=== PATIENT | male | born 1960 | race Caucasian/White ===

== ENCOUNTER 2020-07-26 12:51 | Inpatient (IN) | payer BC ==
[2020-07-26] MEDS ORDERED: ACETAMINOPHEN INJECTION 100 ML IVPB ONE (14:02)
[2020-07-26 14:46] LABS: BASO % 0.2 % (0-2.0); HEMATOCRIT 47.5 % (35.4-49); HEMOGLOBIN 16.5 GM/dL (11.7-16.9); LYMPH % 7.2 % (8-40); MCH 31.2 pg (25.7-33.7); MCHC 34.7 g/dl (32.0-35.9); MEAN CELL VOLUME 89.9 fl (80-96); MEAN PLT VOLUME 8.9 fl (7.5-11.1); MONO % 5.5 % (3.8-10.2); NEUT % 87.1 % (42.8-82.8); PLATELET COUNT 112 K/MM3 (134-434); RBC 5.28 M/mm3 (4.00-5.60); WHITE BLOOD COUNT 9.4 K/mm3 (4.0-10.0)
[2020-07-26] MEDS ORDERED: SODIUM CHLORIDE 500 ML IV STA (14:50)
[2020-07-26] MEDS ORDERED: ACETAMINOPHEN 1000 MG/100 ML BAG IVPB ONE (14:50)
[2020-07-26 14:52] LABS: EPI CELLS 12 /uL (0-25.1); HYALINE CASTS 2 /uL (0-3.1); INR 1.4 (0.83-1.09); PROTHROMBIN TIME (PATIENT) 17.1 SEC (9.7-13.0); URINE APPEARANCE CLEAR; URINE BACTERIA 49 /uL (0-1359); URINE BILIRUBIN 1+ (NEGATIVE); URINE COLOR DK YELLOW; URINE GLUCOSE (UA) NEGATIVE (NEGATIVE); URINE KETONE TRACE (NEGATIVE); URINE LEUK ESTERASE NEGATIVE (NEGATIVE); URINE NITRITE NEGATIVE (NEGATIVE); URINE PROTEIN 2+ (NEGATIVE); URINE RBC 15 /uL (0-23.9); URINE WBC 10 /uL (0-25.8)
[2020-07-26 14:55] LABS: ACTIVATED PTT 33.4 SECONDS (25.2-36.5)
[2020-07-26 14:58] VITALS: BMI 26.9
[2020-07-26 15:06] LABS: CHLORIDE 101 mmol/L (98-107); SODIUM 135 mmol/L (136-145)
[2020-07-26 15:08] LABS: ANION GAP 7 MMOL/L (8-16); CALCIUM 8.2 mg/dL (8.5-10.1); CO2 26 mmol/L (21-32)
[2020-07-26 15:09] LABS: ALBUMIN 2.7 g/dl (3.4-5.0); BLOOD UREA NITROGEN 17.2 mg/dL (7-18); GLUCOSE,RANDOM 193 mg/dL (74-106)
[2020-07-26 15:11] LABS: BILIRUBIN,DIRECT 0.5 mg/dL (0.0-0.2); SGPT/ALT 56 U/L (13-61)
[2020-07-26 15:12] LABS: CREATININE 0.8 mg/dL (0.55-1.3); SGOT/AST 84 U/L (15-37)
[2020-07-26 15:13] LABS: BILIRUBIN,TOTAL 0.9 mg/dL (0.2-1); TOT PROT 6.4 g/dl (6.4-8.2)
[2020-07-26 15:14] LABS: ALK PHOS 115 U/L (45-117)
[2020-07-26 15:15] LABS: LDH 422 U/L (87-246)
[2020-07-26] MEDS ORDERED: SODIUM CHLORIDE 1,000 ML IV STA (16:02)
[2020-07-26] MEDS ORDERED: DEXAMETHASONE SOD PHOSPHATE 10 MG/1 ML VIAL ONE (17:38)
[2020-07-26] MEDS ORDERED: ENOXAPARIN NA (PORCINE) 40 MG/0.4 ML DISP.SYRIN SQ ONE (17:38)
[2020-07-26] MEDS ORDERED: CEFTRIAXONE 1 GM/50 ML BAG ONE (17:38)
[2020-07-26] MEDS ORDERED: CHOLECALCIFEROL (VIT D3) 1,000 UNIT (25 MCG) TABLET ONE (17:38)
[2020-07-26] MEDS ORDERED: AZITHROMYCIN IVPB 500 MG/250 ML BAG IVPB ONE (17:39)
[2020-07-26] MEDS: CEFTRIAXONE 1 GM in DEXTROSE 5%-WATER - 50 ML IVPB SCH (17:55)
[2020-07-26] MEDS: DEXAMETHASONE SOD PHOSPHATE 4 MG/1 ML VIAL IVPUSH SCH (17:55)
[2020-07-26] MEDS: CHOLECALCIFEROL (VIT D3) 1,000 UNIT (25 MCG) TABLET PO SCH (17:55)
[2020-07-26] MEDS: ENOXAPARIN NA (PORCINE) 40 MG/0.4 ML DISP.SYRIN SQ SCH (17:55)
[2020-07-26] MEDS: AZITHROMYCIN IVPB 500 MG/250 ML BAG IVPB SCH (18:30)
[2020-07-26] MEDS ORDERED: ALBUTEROL SO4 HFA INHALER IH PRN (18:48)
[2020-07-27] MEDS ORDERED: ZINC SULFATE 220 MG CAPSULE (FP) ONE ×2 (00:24→09:31)
[2020-07-27] MEDS: ASCORBIC ACID 500 MG TABLET (FP) PO SCH ×3 (00:24→21:42)
[2020-07-27] MEDS: ZINC SULFATE 220 MG CAPSULE (FP) PO SCH ×3 (00:24→21:42)
[2020-07-27 06:44] LABS: INR 1.6 (0.83-1.09); PROTHROMBIN TIME (PATIENT) 19.4 SEC (9.7-13.0)
[2020-07-27 06:45] LABS: BASO % 0.1 % (0-2.0); HEMATOCRIT 44.1 % (35.4-49); HEMOGLOBIN 15.5 GM/dL (11.7-16.9); LYMPH % 10.9 % (8-40); MCH 31.9 pg (25.7-33.7); MCHC 35.2 g/dl (32.0-35.9); MEAN CELL VOLUME 90.8 fl (80-96); MEAN PLT VOLUME 8.8 fl (7.5-11.1); MONO % 5.1 % (3.8-10.2); NEUT % 83.9 % (42.8-82.8); PLATELET COUNT 85 K/MM3 (134-434); RBC 4.85 M/mm3 (4.00-5.60); RDW 13.4 % (11.9-15.9); WHITE BLOOD COUNT 5.5 K/mm3 (4.0-10.0)
[2020-07-27 06:47] LABS: ACTIVATED PTT 36.4 SECONDS (25.2-36.5)
[2020-07-27 07:00] LABS: BLOOD UREA NITROGEN 14.2 mg/dL (7-18)
[2020-07-27 07:01] LABS: ALBUMIN 2.3 g/dl (3.4-5.0); MAGNESIUM 1.8 mg/dL (1.8-2.4)
[2020-07-27 07:03] LABS: CREATININE 0.6 mg/dL (0.55-1.3); PHOSPHOROUS 2.8 mg/dL (2.5-4.9)
[2020-07-27 07:05] LABS: BILIRUBIN,TOTAL 0.6 mg/dL (0.2-1); TOT PROT 5.6 g/dl (6.4-8.2)
[2020-07-27] MEDS ORDERED: CHOLECALCIFEROL (VIT D3) 1,000 UNIT (25 MCG) TABLET ONE (09:31)
[2020-07-27] MEDS ORDERED: DEXAMETHASONE SOD PHOSPHATE 4 MG/1 ML VIAL ONE (09:31)
[2020-07-27] MEDS ORDERED: cefTRIAXone SODIUM 1 GM VIAL ONE (09:31)
[2020-07-27] MEDS ORDERED: ASCORBIC ACID 500 MG TABLET (FP) ONE (09:31)
[2020-07-27] MEDS ORDERED: ENOXAPARIN NA (PORCINE) 40 MG/0.4 ML DISP.SYRIN SQ ONE (09:31)
[2020-07-27] MEDS ORDERED: AZITHROMYCIN IVPB 500 MG/250 ML BAG IVPB ONE (09:32)
[2020-07-27] MEDS: DEXAMETHASONE SOD PHOSPHATE 4 MG/1 ML VIAL IVPUSH SCH (09:36)
[2020-07-27] MEDS: CEFTRIAXONE 1 GM in DEXTROSE 5%-WATER - 50 ML IVPB SCH (09:36)
[2020-07-27] MEDS: AZITHROMYCIN IVPB 500 MG/250 ML BAG IVPB SCH (09:36)
[2020-07-27] MEDS: CHOLECALCIFEROL (VIT D3) 1,000 UNIT (25 MCG) TABLET PO SCH (09:36)
[2020-07-27] MEDS: ENOXAPARIN NA (PORCINE) 40 MG/0.4 ML DISP.SYRIN SQ SCH (09:36)
[2020-07-27] MEDS ORDERED: AZITHROMYCIN IVPB 500 MG in DEXTROSE 5%-WATER - 250 ML IVPB SCH (10:00)
[2020-07-27] MEDS ORDERED: CEFTRIAXONE 1 GM in DEXTROSE 5%-WATER - 50 ML IVPB SCH (10:00)
[2020-07-27] MEDS ORDERED: DEXAMETHASONE SOD PHOSPHATE 4 MG/1 ML VIAL IVPUSH SCH (10:00)
[2020-07-27] MEDS ORDERED: REMDESIVIR 200 MG in SODIUM CHLORIDE 210 ML IVPB ONE (11:45)
[2020-07-27] MEDS: BENZOCAINE/MENTH/CETYLPYRD CL 1 EACH LOZENGE MM PRN ×2 (16:34→22:13)
[2020-07-28] MEDS ORDERED: ACETAMINOPHEN WITH CODEINE 300MG/30MG TABLET PO PRN (01:40)
[2020-07-28] MEDS ORDERED: ACETAMINOPHEN WITH CODEINE 300MG/30MG TABLET PO ONE (02:22)
[2020-07-28 08:42] LABS: HEMATOCRIT 41.6 % (35.4-49); HEMOGLOBIN 14.5 GM/dL (11.7-16.9); LYMPH % 10.9 % (8-40); MCH 31.7 pg (25.7-33.7); MCHC 34.9 g/dl (32.0-35.9); MEAN CELL VOLUME 90.8 fl (80-96); MEAN PLT VOLUME 9.4 fl (7.5-11.1); MONO % 7.7 % (3.8-10.2); NEUT % 81.4 % (42.8-82.8); PLATELET COUNT 105 K/MM3 (134-434); RBC 4.58 M/mm3 (4.00-5.60); RDW 13.4 % (11.9-15.9); WHITE BLOOD COUNT 8.4 K/mm3 (4.0-10.0)
[2020-07-28 08:57] LABS: ALBUMIN 2.3 g/dl (3.4-5.0); BLOOD UREA NITROGEN 16.2 mg/dL (7-18); CALCIUM 7.9 mg/dL (8.5-10.1); MAGNESIUM 2.3 mg/dL (1.8-2.4)
[2020-07-28 09:00] LABS: CREATININE 0.6 mg/dL (0.55-1.3)
[2020-07-28 09:01] LABS: PHOSPHOROUS 2.8 mg/dL (2.5-4.9)
[2020-07-28 09:02] LABS: TOT PROT 5.6 g/dl (6.4-8.2)
[2020-07-28] MEDS: ASCORBIC ACID 500 MG TABLET (FP) PO SCH ×2 (09:34→23:16)
[2020-07-28] MEDS: ZINC SULFATE 220 MG CAPSULE (FP) PO SCH ×2 (09:34→23:16)
[2020-07-28] MEDS: CHOLECALCIFEROL (VIT D3) 1,000 UNIT (25 MCG) TABLET PO SCH (09:34)
[2020-07-28] MEDS: ENOXAPARIN NA (PORCINE) 40 MG/0.4 ML DISP.SYRIN SQ SCH (09:35)
[2020-07-28] MEDS: DEXAMETHASONE SOD PHOSPHATE 4 MG/1 ML VIAL IVPUSH SCH (09:53)
[2020-07-28] MEDS: AZITHROMYCIN IVPB 500 MG/250 ML BAG IVPB SCH (09:53)
[2020-07-28] MEDS: CEFTRIAXONE 1 GM in DEXTROSE 5%-WATER - 50 ML IVPB SCH (09:53)
[2020-07-28] MEDS ORDERED: ENOXAPARIN NA (PORCINE) 30 MG/0.3 ML DISP.SYRIN SQ ONE (14:08)
[2020-07-28] MEDS ORDERED: SODIUM CHLORIDE 500 ML IV STA (14:30)
[2020-07-28] MEDS: REMDESIVIR 100 MG in SODIUM CHLORIDE 230 ML IVPB SCH (14:41)
[2020-07-28] MEDS: INSULIN SLIDING SCALE (NOVOLOG) 1 VIAL SQ SCH ×3 (14:42→23:17)
[2020-07-28] MEDS: ENOXAPARIN NA (PORCINE) 80 MG/0.8 ML DISP.SYRIN SQ SCH (23:16)
[2020-07-28] MEDS: FAMOTIDINE 20 MG/50 ML IVPB 20 MG/50 ML MG IVPB SCH (23:17)
[2020-07-29] MEDS: INSULIN SLIDING SCALE (NOVOLOG) 1 VIAL SQ SCH ×4 (06:55→21:24)
[2020-07-29] MEDS: CHOLECALCIFEROL (VIT D3) 1,000 UNIT (25 MCG) TABLET PO SCH (09:00)
[2020-07-29] MEDS: ZINC SULFATE 220 MG CAPSULE (FP) PO SCH ×2 (09:00→21:24)
[2020-07-29] MEDS: FAMOTIDINE 20 MG/50 ML IVPB 20 MG/50 ML MG IVPB SCH ×2 (09:00→21:24)
[2020-07-29] MEDS: ASCORBIC ACID 500 MG TABLET (FP) PO SCH ×2 (09:01→21:24)
[2020-07-29] MEDS: AZITHROMYCIN IVPB 500 MG/250 ML BAG IVPB SCH (09:02)
[2020-07-29] MEDS: ENOXAPARIN NA (PORCINE) 80 MG/0.8 ML DISP.SYRIN SQ SCH ×2 (09:19→21:24)
[2020-07-29] MEDS: DEXAMETHASONE SOD PHOSPHATE 4 MG/1 ML VIAL IVPUSH SCH (09:20)
[2020-07-29] MEDS: CEFTRIAXONE 1 GM in DEXTROSE 5%-WATER - 50 ML IVPB SCH (11:07)
[2020-07-29] MEDS: REMDESIVIR 100 MG in SODIUM CHLORIDE 230 ML IVPB SCH (11:50)
[2020-07-29 12:43] LABS: BASO % 0.1 % (0-2.0); HEMATOCRIT 42.1 % (35.4-49); HEMOGLOBIN 14.8 GM/dL (11.7-16.9); LYMPH % 8.5 % (8-40); MCH 31.7 pg (25.7-33.7); MCHC 35.2 g/dl (32.0-35.9); MEAN CELL VOLUME 89.9 fl (80-96); MEAN PLT VOLUME 9.3 fl (7.5-11.1); NEUT % 84.4 % (42.8-82.8); PLATELET COUNT 115 K/MM3 (134-434); RBC 4.69 M/mm3 (4.00-5.60); RDW 13.4 % (11.9-15.9)
[2020-07-29 13:07] LABS: CALCIUM 7.7 mg/dL (8.5-10.1)
[2020-07-29 13:08] LABS: ALBUMIN 2.2 g/dl (3.4-5.0); BLOOD UREA NITROGEN 14.8 mg/dL (7-18); MAGNESIUM 2.3 mg/dL (1.8-2.4)
[2020-07-29 13:11] LABS: CREATININE 0.6 mg/dL (0.55-1.3); PHOSPHOROUS 2.6 mg/dL (2.5-4.9)
[2020-07-29 13:12] LABS: BILIRUBIN,TOTAL 0.7 mg/dL (0.2-1)
[2020-07-29 13:13] LABS: TOT PROT 5.5 g/dl (6.4-8.2)
[2020-07-29 13:15] LABS: INR 1.63 (0.83-1.09); PROTHROMBIN TIME (PATIENT) 19.5 SEC (9.7-13.0)
[2020-07-30] MEDS: INSULIN SLIDING SCALE (NOVOLOG) 1 VIAL SQ SCH ×4 (06:29→22:14)
[2020-07-30 09:09] LABS: HEMATOCRIT 45.5 % (35.4-49); HEMOGLOBIN 15.5 GM/dL (11.7-16.9); MCH 30.9 pg (25.7-33.7); MEAN CELL VOLUME 90.9 fl (80-96); MEAN PLT VOLUME 9.4 fl (7.5-11.1); PLATELET COUNT 127 K/MM3 (134-434); RBC 5.01 M/mm3 (4.00-5.60); RDW 13.3 % (11.9-15.9); WHITE BLOOD COUNT 8.2 K/mm3 (4.0-10.0)
[2020-07-30 09:15] LABS: INR 1.53 (0.83-1.09); PROTHROMBIN TIME (PATIENT) 18.6 SEC (9.7-13.0)
[2020-07-30 09:28] LABS: CALCIUM 7.6 mg/dL (8.5-10.1)
[2020-07-30 09:29] LABS: ALBUMIN 2.3 g/dl (3.4-5.0); MAGNESIUM 2.1 mg/dL (1.8-2.4)
[2020-07-30 09:32] LABS: CREATININE 0.7 mg/dL (0.55-1.3); PHOSPHOROUS 2.6 mg/dL (2.5-4.9)
[2020-07-30 09:33] LABS: BILIRUBIN,TOTAL 0.9 mg/dL (0.2-1); TOT PROT 5.6 g/dl (6.4-8.2)
[2020-07-30] MEDS: FAMOTIDINE 20 MG/50 ML IVPB 20 MG/50 ML MG IVPB SCH ×2 (09:51→22:16)
[2020-07-30] MEDS: ENOXAPARIN NA (PORCINE) 80 MG/0.8 ML DISP.SYRIN SQ SCH ×2 (09:51→22:16)
[2020-07-30] MEDS: ZINC SULFATE 220 MG CAPSULE (FP) PO SCH ×2 (09:52→22:14)
[2020-07-30] MEDS: CHOLECALCIFEROL (VIT D3) 1,000 UNIT (25 MCG) TABLET PO SCH (09:53)
[2020-07-30] MEDS: DEXAMETHASONE SOD PHOSPHATE 4 MG/1 ML VIAL IVPUSH SCH (09:53)
[2020-07-30] MEDS: REMDESIVIR 100 MG in SODIUM CHLORIDE 230 ML IVPB SCH (09:53)
[2020-07-30] MEDS: ASCORBIC ACID 500 MG TABLET (FP) PO SCH ×2 (09:53→22:14)
[2020-07-31] MEDS: INSULIN SLIDING SCALE (NOVOLOG) 1 VIAL SQ SCH ×4 (06:05→23:13)
[2020-07-31 08:35] LABS: HEMATOCRIT 44.9 % (35.4-49); HEMOGLOBIN 15.5 GM/dL (11.7-16.9); MCH 31.1 pg (25.7-33.7); MCHC 34.4 g/dl (32.0-35.9); MEAN CELL VOLUME 90.3 fl (80-96); MEAN PLT VOLUME 9.4 fl (7.5-11.1); PLATELET COUNT 131 K/MM3 (134-434); RBC 4.98 M/mm3 (4.00-5.60); RDW 13.5 % (11.9-15.9); WHITE BLOOD COUNT 8.2 K/mm3 (4.0-10.0)
[2020-07-31 08:46] LABS: ALBUMIN 2.3 g/dl (3.4-5.0); BLOOD UREA NITROGEN 13.9 mg/dL (7-18); CALCIUM 7.7 mg/dL (8.5-10.1)
[2020-07-31 08:49] LABS: CREATININE 0.6 mg/dL (0.55-1.3)
[2020-07-31 08:50] LABS: INR 1.57 (0.83-1.09); PHOSPHOROUS 2.9 mg/dL (2.5-4.9); PROTHROMBIN TIME (PATIENT) 18.8 SEC (9.7-13.0)
[2020-07-31 08:51] LABS: TOT PROT 5.7 g/dl (6.4-8.2)
[2020-07-31] MEDS: ENOXAPARIN NA (PORCINE) 80 MG/0.8 ML DISP.SYRIN SQ SCH ×2 (09:52→21:30)
[2020-07-31] MEDS: ASCORBIC ACID 500 MG TABLET (FP) PO SCH ×2 (09:52→21:30)
[2020-07-31] MEDS: FAMOTIDINE 20 MG/50 ML IVPB 20 MG/50 ML MG IVPB SCH ×2 (09:52→21:30)
[2020-07-31] MEDS: DEXAMETHASONE SOD PHOSPHATE 4 MG/1 ML VIAL IVPUSH SCH (09:52)
[2020-07-31] MEDS: ZINC SULFATE 220 MG CAPSULE (FP) PO SCH ×2 (09:52→21:30)
[2020-07-31] MEDS: CHOLECALCIFEROL (VIT D3) 1,000 UNIT (25 MCG) TABLET PO SCH (09:52)
[2020-07-31] MEDS: REMDESIVIR 100 MG in SODIUM CHLORIDE 230 ML IVPB SCH (09:53)
[2020-08-01] MEDS: INSULIN SLIDING SCALE (NOVOLOG) 1 VIAL SQ SCH ×4 (05:59→22:15)
[2020-08-01 08:09] LABS: BASO % 0.1 % (0-2.0); EOS % 0.8 % (0-4.5); HEMATOCRIT 44.5 % (35.4-49); HEMOGLOBIN 15.2 GM/dL (11.7-16.9); LYMPH % 15.1 % (8-40); MCH 31.1 pg (25.7-33.7); MCHC 34.2 g/dl (32.0-35.9); MEAN CELL VOLUME 90.8 fl (80-96); MEAN PLT VOLUME 9.5 fl (7.5-11.1); MONO % 7.1 % (3.8-10.2); NEUT % 76.9 % (42.8-82.8); PLATELET COUNT 145 K/MM3 (134-434); RDW 13.4 % (11.9-15.9); WHITE BLOOD COUNT 7.7 K/mm3 (4.0-10.0)
[2020-08-01 08:28] LABS: ALBUMIN 2.1 g/dl (3.4-5.0); CALCIUM 7.9 mg/dL (8.5-10.1)
[2020-08-01 08:29] LABS: BLOOD UREA NITROGEN 15.6 mg/dL (7-18)
[2020-08-01 08:31] LABS: BILIRUBIN,DIRECT 0.3 mg/dL (0.0-0.2)
[2020-08-01 08:32] LABS: CREATININE 0.5 mg/dL (0.55-1.3)
[2020-08-01 08:33] LABS: BILIRUBIN,TOTAL 1.3 mg/dL (0.2-1); TOT PROT 5.8 g/dl (6.4-8.2)
[2020-08-01] MEDS: CHOLECALCIFEROL (VIT D3) 1,000 UNIT (25 MCG) TABLET PO SCH (10:58)
[2020-08-01] MEDS: ASCORBIC ACID 500 MG TABLET (FP) PO SCH ×2 (10:58→22:13)
[2020-08-01] MEDS: ZINC SULFATE 220 MG CAPSULE (FP) PO SCH ×2 (10:58→22:13)
[2020-08-01] MEDS: ENOXAPARIN NA (PORCINE) 80 MG/0.8 ML DISP.SYRIN SQ SCH ×2 (10:59→22:12)
[2020-08-01] MEDS: FAMOTIDINE 20 MG/50 ML IVPB 20 MG/50 ML MG IVPB SCH ×2 (11:00→22:13)
[2020-08-01] MEDS: DEXAMETHASONE SOD PHOSPHATE 4 MG/1 ML VIAL IVPUSH SCH (11:00)
[2020-08-02] MEDS: INSULIN SLIDING SCALE (NOVOLOG) 1 VIAL SQ SCH ×3 (06:59→17:11)
[2020-08-02] MEDS: FAMOTIDINE 20 MG/50 ML IVPB 20 MG/50 ML MG IVPB SCH (10:45)
[2020-08-02] MEDS: ASCORBIC ACID 500 MG TABLET (FP) PO SCH (10:46)
[2020-08-02] MEDS: CHOLECALCIFEROL (VIT D3) 1,000 UNIT (25 MCG) TABLET PO SCH (10:46)
[2020-08-02] MEDS: ZINC SULFATE 220 MG CAPSULE (FP) PO SCH (10:46)
[2020-08-02] MEDS: DEXAMETHASONE SOD PHOSPHATE 4 MG/1 ML VIAL IVPUSH SCH (10:46)
[2020-08-02] MEDS: ENOXAPARIN NA (PORCINE) 80 MG/0.8 ML DISP.SYRIN SQ SCH (10:47)
[2020-08-02 15:22] LABS: ALBUMIN 2.5 g/dl (3.4-5.0); BILIRUBIN,TOTAL 0.9 mg/dL (0.2-1); BLOOD UREA NITROGEN 19.4 mg/dL (7-18); CALCIUM 8.3 mg/dL (8.5-10.1); CREATININE 0.8 mg/dL (0.55-1.3)
[2020-08-02 16:52] VITALS: BP 115/69; PULSE 56; TEMP 97.9
[2020-08-02 23:07] LABS: HEP B CORE AB, TOT Negative (Negative)
== END 2020-08-02 19:15 | disposition home or self-care (01) | DRG 177 ==
LOC: JER 12:51 → JERBED 16:54 → J6WEST-2 07-27 14:04
PROVIDERS: ADMIT Internal Medicine; ATTEND Internal Medicine
PROC: XW13325 Transfusion of Convalescent Plasma (Nonautologous) into Peripheral Vein, Percutaneous Approach, New Technology Group 5 (ICD-10-PCS; principal; 2020-07-27)
PROC: XW033E5 Introduction of Remdesivir Anti-infective into Peripheral Vein, Percutaneous Approach, New Technology Group 5 (ICD-10-PCS; 2020-07-27)
DX: U07.1 COVID-19 (principal); J12.82 Pneumonia due to coronavirus disease 2019; J96.01 Acute respiratory failure with hypoxia; E87.2 Acidosis; E11.9 Type 2 diabetes mellitus without complications; R82.71 Bacteriuria; D69.6 Thrombocytopenia, unspecified; R74.01 Elevation of levels of liver transaminase levels
CPT/HCPCS: 36415; 36430; 71045-TC-FY; 80048; 80053; 80074; 80076; 81003; 82248; 82550; 82728; 82962; 83036; 83605; 83615; 83735; 84100; 84484; 85025; 85027; 85379; 85384; 85610; 85651; 85730; 86140; 86704; 86706; 86707; 86708; 86709; 86850; 86900; 86901; 87040; 87086; 87186; 87340; 87522; 93005; 93010; 94010; 94761; 99285-25; C9399; C9803; J0131; P9017; U0003

== ENCOUNTER 2020-09-10 10:03 | Emergency (ER) | payer BC ==
[2020-09-10 10:11] VITALS: BMI 26.9
[2020-09-10] MEDS ORDERED: ACETAMINOPHEN 325 MG TABLET (FP) PO ONE (10:44)
[2020-09-10] MEDS ORDERED: KETOROLAC TROMETHAMINE 60 MG/2 ML VIAL IM ONE (10:44)
[2020-09-10] MEDS ORDERED: LIDOCAINE 5% TOPICAL PATCH TP ONE (10:44)
[2020-09-10] MEDS ORDERED: LIDOCAINE 5% TOPICAL PATCH ONE (11:01)
[2020-09-10] MEDS ORDERED: KETOROLAC TROMETHAMINE 30 MG/1 ML VIAL ONE (11:01)
[2020-09-10] MEDS ORDERED: ACETAMINOPHEN 500 MG TABLET (FP) ONE (11:04)
[2020-09-10 11:39] LABS: URINE APPEARANCE CLOUDY; URINE BILIRUBIN 1+ (NEGATIVE); URINE COLOR DK YELLOW; URINE GLUCOSE (UA) NEGATIVE (NEGATIVE); URINE KETONE TRACE (NEGATIVE); URINE LEUK ESTERASE NEGATIVE (NEGATIVE); URINE NITRITE NEGATIVE (NEGATIVE); URINE PROTEIN NEGATIVE (NEGATIVE)
[2020-09-10 12:34] VITALS: BP 136/86; PULSE 88; TEMP 97.7
== END 2020-09-10 12:33 | disposition home or self-care (01) ==
LOC: JERFT 10:03
PROC: 3E0233Z Introduction of Anti-inflammatory into Muscle, Percutaneous Approach (ICD-10-PCS; principal; 2020-09-10)
DX: M54.5 Low back pain (principal)
CPT/HCPCS: 72100-TC-FY; 81003; 87086; 99284-25

== ENCOUNTER 2020-10-12 17:27 | Emergency (ER) | payer BC, OTHER ==
[2020-10-12 17:42] VITALS: BMI 27.9
[2020-10-12] MEDS ORDERED: ACETAMINOPHEN 500 MG TABLET (FP) PO ONE (18:39)
[2020-10-12] MEDS ORDERED: DIPHTH,PERTUSS(ACELL),TET 0.5 ML DISP.SYRIN IM ONE ×2 (18:39→18:55)
[2020-10-12] MEDS ORDERED: ACETAMINOPHEN 500 MG TABLET (FP) ONE (18:55)
[2020-10-12 19:46] VITALS: BP 139/88; PULSE 87; TEMP 98.2
== END 2020-10-12 19:45 | disposition home or self-care (01) ==
LOC: JER 17:27 → MERGE 17:27 → JER 19:45
PROC: 0HQ0XZZ Repair Scalp Skin, External Approach (ICD-10-PCS; principal; 2020-10-12)
PROC: 3E0234Z Introduction of Serum, Toxoid and Vaccine into Muscle, Percutaneous Approach (ICD-10-PCS; 2020-10-12)
DX: S01.81XA Laceration without foreign body of other part of head, initial encounter (principal); S09.90XA Unspecified injury of head, initial encounter
CPT/HCPCS: 72100-TC-FY; 90715; 99284-25

== ENCOUNTER 2024-03-01 01:38 | Inpatient (IN) | payer BC, OTHER ==
[2024-03-01 01:48] VITALS: BMI 30.2
[2024-03-01] MEDS: SODIUM CHLORIDE 0.9% 500 ML INFUS.BAG IV ONE ×2 (03:05→04:32)
[2024-03-01 03:26] LABS: BASO % 0.5 % (0-2.0); EOS % 0.3 % (0-4.5); HEMOGLOBIN 9.6 GM/dL (11.7-16.9); LYMPH % 16.9 % (8-40); MCH 23.4 pg (25.7-33.7); MCHC 32.2 g/dl (32.0-35.9); MEAN CELL VOLUME 72.7 fl (80-96); MEAN PLT VOLUME 8.3 fl (7.5-11.1); MONO % 4.8 % (3.8-10.2); NEUT % 77.5 % (42.8-82.8); PLATELET COUNT 98 10^3/uL (134-434); RBC 4.13 M/mm3 (4.00-5.60); RDW 18.7 % (11.9-15.9); WHITE BLOOD COUNT 9.3 K/mm3 (4.0-10.0)
[2024-03-01 03:39] LABS: INR 1.43 (0.83-1.09); PROTHROMBIN TIME (PATIENT) 16.3 SEC (9.7-13.0)
[2024-03-01 03:41] LABS: ACTIVATED PTT 30.4 SECONDS (25.2-36.5)
[2024-03-01 03:45] LABS: POTASSIUM 4.3 mmol/L (3.5-5.1)
[2024-03-01 03:47] LABS: CALCIUM 8.4 mg/dL (8.5-10.1)
[2024-03-01 03:48] LABS: BLOOD UREA NITROGEN 24.4 mg/dL (7-18)
[2024-03-01 03:51] LABS: CREATININE 0.8 mg/dL (0.55-1.3)
[2024-03-01 03:53] LABS: BILIRUBIN,TOTAL 1.7 mg/dL (0.2-1); TOT PROT 6.4 g/dl (6.4-8.2)
[2024-03-01] MEDS: PANTOPRAZOLE SODIUM 40 MG VIAL IVPUSH ONE (03:53)
[2024-03-01] MEDS: OCTREOTIDE ACETATE 50 MCG/1 ML - 1 ML VIAL IVPUSH ONE (03:53)
[2024-03-01] MEDS ORDERED: PANTOPRAZOLE SODIUM 40 MG VIAL ONE (03:59)
[2024-03-01] MEDS ORDERED: OCTREOTIDE ACETATE 100 MCG/1 ML ONE ×2 (03:59→04:00)
[2024-03-01 04:04] LABS: LACTIC ACID 2.9 mmol/L (0.4-2.0)
[2024-03-01] MEDS: OCTREOTIDE ACETATE 200 MCG, OCTREOTIDE ACETATE 1,000 MCG in DEXTROSE 5%-WATER - 496 ML IVPB SCH (06:16)
[2024-03-01 06:27] LABS: BASO % 0.4 % (0-2.0); EOS % 0.1 % (0-4.5); HEMATOCRIT 24.1 % (35.4-49); HEMOGLOBIN 7.6 GM/dL (11.7-16.9); LYMPH % 22.3 % (8-40); MCH 23.3 pg (25.7-33.7); MCHC 31.6 g/dl (32.0-35.9); MEAN CELL VOLUME 73.7 fl (80-96); MEAN PLT VOLUME 8.5 fl (7.5-11.1); NEUT % 73.2 % (42.8-82.8); PLATELET COUNT 71 10^3/uL (134-434); RBC 3.28 M/mm3 (4.00-5.60); RDW 18.2 % (11.9-15.9); WHITE BLOOD COUNT 6.8 K/mm3 (4.0-10.0)
[2024-03-01] MEDS: PANTOPRAZOLE SODIUM 80 MG in SODIUM CHLORIDE 100 ML IVPB SCH (08:30)
[2024-03-01 08:41] LABS: BASO % 0.6 % (0-2.0); EOS % 0.1 % (0-4.5); HEMATOCRIT 25.3 % (35.4-49); HEMOGLOBIN 8.1 GM/dL (11.7-16.9); LYMPH % 23.2 % (8-40); MCH 23.4 pg (25.7-33.7); MEAN CELL VOLUME 73.1 fl (80-96); MEAN PLT VOLUME 8.5 fl (7.5-11.1); MONO % 4.5 % (3.8-10.2); NEUT % 71.6 % (42.8-82.8); PLATELET COUNT 82 10^3/uL (134-434); RBC 3.46 M/mm3 (4.00-5.60); RDW 18.7 % (11.9-15.9); WHITE BLOOD COUNT 8.2 K/mm3 (4.0-10.0)
[2024-03-01 17:52] LABS: HEMATOCRIT 27.8 % (35.4-49); HEMOGLOBIN 8.9 GM/dL (11.7-16.9); MCH 24.1 pg (25.7-33.7); MEAN CELL VOLUME 75.2 fl (80-96); MEAN PLT VOLUME 8.4 fl (7.5-11.1); PLATELET COUNT 93 10^3/uL (134-434); RDW 19.2 % (11.9-15.9); WHITE BLOOD COUNT 11.6 K/mm3 (4.0-10.0)
[2024-03-01] MEDS: LACTATED RINGERS SOLUTION 1,000 ML/1,000 ML INFUS.BAG IV SCH (22:43)
[2024-03-02 08:02] LABS: POTASSIUM 3.9 mmol/L (3.5-5.1)
[2024-03-02 08:05] LABS: BLOOD UREA NITROGEN 16.4 mg/dL (7-18); CALCIUM 7.6 mg/dL (8.5-10.1)
[2024-03-02 08:09] LABS: CREATININE 0.7 mg/dL (0.55-1.3)
[2024-03-02] MEDS ORDERED: DEXTROSE 50%-WATER - 25 GM/50 ML VIAL IVPUSH PRN (10:19)
[2024-03-02] MEDS ORDERED: MIDAZOLAM HCL 2 MG/2 ML SINGLE DOSE VIAL ONE (14:04)
[2024-03-03 07:21] LABS: BASO % 0.6 % (0-2.0); EOS % 3.8 % (0-4.5); HEMATOCRIT 24.7 % (35.4-49); HEMOGLOBIN 8.3 GM/dL (11.7-16.9); LYMPH % 36.9 % (8-40); MCH 24.7 pg (25.7-33.7); MCHC 33.6 g/dl (32.0-35.9); MEAN CELL VOLUME 73.5 fl (80-96); MEAN PLT VOLUME 8.4 fl (7.5-11.1); MONO % 8.1 % (3.8-10.2); NEUT % 50.6 % (42.8-82.8); PLATELET COUNT 77 10^3/uL (134-434); RBC 3.37 M/mm3 (4.00-5.60); RDW 18.7 % (11.9-15.9); WHITE BLOOD COUNT 4.8 K/mm3 (4.0-10.0)
[2024-03-03] MEDS: PANTOPRAZOLE 40 MG TABLET PO SCH (12:09)
[2024-03-04 06:54] LABS: INR 1.38 (0.83-1.09); PROTHROMBIN TIME (PATIENT) 15.4 SEC (9.7-13.0)
[2024-03-04 06:57] LABS: BASO % 0.9 % (0-2.0); EOS % 3.8 % (0-4.5); HEMATOCRIT 26.6 % (35.4-49); HEMOGLOBIN 8.7 GM/dL (11.7-16.9); LYMPH % 39.3 % (8-40); MCH 24.6 pg (25.7-33.7); MCHC 32.5 g/dl (32.0-35.9); MEAN CELL VOLUME 75.5 fl (80-96); MEAN PLT VOLUME 8.5 fl (7.5-11.1); PLATELET COUNT 73 10^3/uL (134-434); RBC 3.53 M/mm3 (4.00-5.60); RDW 19.3 % (11.9-15.9)
[2024-03-04 07:10] LABS: POTASSIUM 3.7 mmol/L (3.5-5.1)
[2024-03-04 07:12] LABS: CALCIUM 8.1 mg/dL (8.5-10.1)
[2024-03-04 07:13] LABS: ALBUMIN 2.8 g/dl (3.4-5.0)
[2024-03-04 07:16] LABS: CREATININE 0.7 mg/dL (0.55-1.3)
[2024-03-04 07:17] LABS: BILIRUBIN,TOTAL 1.7 mg/dL (0.2-1); TOT PROT 5.5 g/dl (6.4-8.2)
[2024-03-05] MEDS ORDERED: DEXTROSE 50%-WATER 25 GM/50 ML DISP.SYRIN IVPUSH PRN (00:31)
[2024-03-05 10:59] LABS: BASO % 0.8 % (0-2.0); EOS % 3.4 % (0-4.5); HEMATOCRIT 25.3 % (35.4-49); HEMOGLOBIN 8.1 GM/dL (11.7-16.9); MCH 23.9 pg (25.7-33.7); MCHC 32.1 g/dl (32.0-35.9); MEAN CELL VOLUME 74.4 fl (80-96); MEAN PLT VOLUME 8.2 fl (7.5-11.1); MONO % 8.1 % (3.8-10.2); NEUT % 56.7 % (42.8-82.8); PLATELET COUNT 77 10^3/uL (134-434)
[2024-03-05 11:22] LABS: ALBUMIN 2.6 g/dl (3.4-5.0)
[2024-03-05 11:25] LABS: BILIRUBIN,DIRECT 0.5 mg/dL (0.0-0.2)
[2024-03-05 11:27] LABS: BILIRUBIN,TOTAL 1.3 mg/dL (0.2-1); TOT PROT 5.6 g/dl (6.4-8.2)
[2024-03-05 15:08] VITALS: BP 122/66; PULSE 74; RESP 18; TEMP 98.1
[2024-03-06 08:11] LABS: CARCINOEMBRYONIC ANTIGEN 2.2 ng/mL (0.0-4.7)
== END 2024-03-05 18:56 | disposition home or self-care (01) | DRG 378 ==
LOC: JER 01:38 → JERBED 08:12 → J4W 12:00
PROVIDERS: ADMIT Internal Medicine; ATTEND Internal Medicine
PROC: 30233N1 Transfusion of Nonautologous Red Blood Cells into Peripheral Vein, Percutaneous Approach (ICD-10-PCS; 2024-03-01)
PROC: 0DJ08ZZ Inspection of Upper Intestinal Tract, Via Natural or Artificial Opening Endoscopic (ICD-10-PCS; principal; 2024-03-02 14:00)
DX: K92.2 Gastrointestinal hemorrhage, unspecified (principal); A04.8 Other specified bacterial intestinal infections; C22.0 Liver cell carcinoma; D62 Acute posthemorrhagic anemia; K25.9 Gastric ulcer, unspecified as acute or chronic, without hemorrhage or perforation; E11.9 Type 2 diabetes mellitus without complications; D69.6 Thrombocytopenia, unspecified; F10.90 Alcohol use, unspecified, uncomplicated; K74.60 Unspecified cirrhosis of liver; R16.0 Hepatomegaly, not elsewhere classified
CPT/HCPCS: 36415; 36430; 71045-TC-FY; 71260-TC; 74174-TC; 74183-TC; 80048; 80053; 80076; 82105; 82272; 82378; 82962; 83605; 83690; 84484; 84702; 85025; 85027; 85610; 85730; 86301; 86705; 86708; 86803; 86850; 86900; 86901; 86922; 87338; 87340; 87517; 94760; 97116-GP; 97161-GP; 99285-25; P9058

== ENCOUNTER 2024-03-08 12:09 | Emergency (ER) | payer OTHER ==
[2024-03-08 12:24] VITALS: RESP 18; BMI 28.9
[2024-03-08] MEDS ORDERED: ACETAMINOPHEN INJECTION 100 ML IVPB ONE (13:25)
[2024-03-08] MEDS: ACETAMINOPHEN 1000 MG/100 ML BAG IVPB ONE ×2 (14:01→18:23)
[2024-03-08 14:17] LABS: INR 1.33 (0.83-1.09); PROTHROMBIN TIME (PATIENT) 15.2 SEC (9.7-13.0)
[2024-03-08] MEDS ORDERED: ONDANSETRON 4 MG/2 ML VIAL ONE ×2 (14:19→18:23)
[2024-03-08 14:20] LABS: ACTIVATED PTT 29.9 SECONDS (25.2-36.5)
[2024-03-08 14:26] LABS: POTASSIUM 4.7 mmol/L (3.5-5.1)
[2024-03-08 14:28] LABS: CALCIUM 9.1 mg/dL (8.5-10.1)
[2024-03-08 14:29] LABS: BLOOD UREA NITROGEN 15.6 mg/dL (7-18)
[2024-03-08] MEDS: ONDANSETRON 4 MG/2 ML VIAL IVPUSH ONE ×2 (14:30→18:24)
[2024-03-08] MEDS: SODIUM CHLORIDE 0.9% 500 ML INFUS.BAG IV ONE ×3 (14:30→17:32)
[2024-03-08 14:32] LABS: ALBUMIN 3.6 g/dl (3.4-5.0)
[2024-03-08 14:33] LABS: BILIRUBIN,TOTAL 1.1 mg/dL (0.2-1); TOT PROT 7.3 g/dl (6.4-8.2)
[2024-03-08 14:40] LABS: LACTIC ACID 3.9 mmol/L (0.4-2.0)
[2024-03-08 15:02] LABS: BASO % 0.8 % (0-2.0); EOS % 0.1 % (0-4.5); HEMATOCRIT 30.4 % (35.4-49); HEMOGLOBIN 9.6 GM/dL (11.7-16.9); LYMPH % 8.3 % (8-40); MCH 23.8 pg (25.7-33.7); MCHC 31.8 g/dl (32.0-35.9); MEAN PLT VOLUME 8.3 fl (7.5-11.1); NEUT % 84.8 % (42.8-82.8); PLATELET COUNT 119 10^3/uL (134-434); RBC 4.05 M/mm3 (4.00-5.60); RDW 18.4 % (11.9-15.9); WHITE BLOOD COUNT 8.9 K/mm3 (4.0-10.0)
[2024-03-08 17:03] LABS: EPI CELLS 6 /uL (0-25.1); HYALINE CASTS 1 /uL (0-3.1); URINE APPEARANCE CLEAR; URINE BACTERIA 3 /uL (0-1359); URINE BILIRUBIN NEGATIVE (NEGATIVE); URINE COLOR YELLOW; URINE GLUCOSE (UA) NEGATIVE (NEGATIVE); URINE KETONE 1+ (NEGATIVE); URINE LEUK ESTERASE NEGATIVE (NEGATIVE); URINE NITRITE NEGATIVE (NEGATIVE); URINE PROTEIN NEGATIVE (NEGATIVE); URINE RBC 248 /uL (0-23.9); URINE UROBILINOGEN 0.2 mg/dL (0.2-1.0); URINE WBC 9 /uL (0-25.8)
[2024-03-08 17:04] VITALS: BP 137/77; PULSE 106; TEMP 98.2
[2024-03-08 21:12] LABS: LACTIC ACID 2.5 mmol/L (0.4-2.0)
== END 2024-03-08 21:11 | disposition home or self-care (01) ==
LOC: JER 12:09
PROC: 3E033NZ Introduction of Analgesics, Hypnotics, Sedatives into Peripheral Vein, Percutaneous Approach (ICD-10-PCS; principal; 2024-03-08)
PROC: 3E033GC Introduction of Other Therapeutic Substance into Peripheral Vein, Percutaneous Approach (ICD-10-PCS; 2024-03-08)
PROC: 3E033GC Introduction of Other Therapeutic Substance into Peripheral Vein, Percutaneous Approach (ICD-10-PCS; 2024-03-08)
DX: C22.0 Liver cell carcinoma (principal); R10.32 Left lower quadrant pain
CPT/HCPCS: 36415; 74177-TC; 76705-TC; 80053; 81003; 83605; 83690; 85025; 85610; 85730; 86850; 86900; 86901; 87086; 93005; 93010; 96374; 96375; 96376; 99285-25; J0131; Q9967